=== PATIENT | female | born 1970 ===

== ENCOUNTER 2021-06-21 20:49 | Emergency (ER) | payer OTHER ==
--- OUTSIDE RECORDS SUMMARY | 2021-06-21 20:53 | XMS REPORT | Continuity of Care Document ---
:1970 Author Organization [facility] t Address [address] [place] [address] [address]. [address] [place] [address] Care Team Providers Name Role Phone CAMRYN Attending Clinician Unavailable PRASAD DENNISON Attending Clinician Unavailable Payers Payer Name Policy Type Policy Number Effective Date Expiration Date S [facility] [id number] 2020 PPO 00:00:00 Problems This patient has no known problems. Allergies, Adverse Reactions, Alerts Allergy Allergy Status Severity Reaction(s) Onset Inactive Treating Comm ents Source Name Type Date Date Clinician CODEINE DRUG Active High SOB [facility] INGREDI 7 ity of 00:00: [address] NO KNOWN Drug Active [facility] ALLERGIE Class ity of [facility] Medications This patient has no known medications. Procedures This patient has no known procedures. Encounters Start End Encounter Admission Attending Care Care Encounter Source Date/Time Date/Time Type Type Clinicians Facility Department ID 2021-05-03 2021-05-03 Outpatient CAMRYNFORMERLY [facility] [id number] 00:00:00 00:00:00 COLT [address] 2021-02-07 2021-02-07 Outpatient [facility] [id number] 00:00:00 00:00:00 COLT [address] 2021-01-20 2021-01-20 Outpatient XAVI MCWILLIAMS [facility] [id number] [facility]00 [facility] Results This patient has no known results.
--- NOTE | 2021-06-21 22:01 | RAD REPORT ---
EXAM DESCRIPTION: Sona Single View06/21/2021 9:56 pm CLINICAL HISTORY: Chest pain COMPARISON: 2012 FINDINGS: The lungs appear grossly clear. Heart is normal size
[2021-06-21 22:06] LABS: Urine Blood 3+ (Negative); Urine Glucose Negative (Negative); Urine Protein Negative (Negative); Urine Specific Gravity 1.015 (1.005-1.030); Urine pH 6.5 (5.0-7.0)
[2021-06-21 22:42] LABS: Absolute Lymphocytes (CBC) 1.5 K/uL (0.7-4.9); Basophils % 0.4 % (0-1.3); Hematocrit 37.3 % (36.0-45.0); RBC Red Blood Cell Count 4.01 M/uL (3.86-4.86)
[2021-06-21 22:47] LABS: Protime INR 0.96
[2021-06-21 23:33] LABS: SARS-COV-2 RT PCR NEGATIVE (NEGATIVE)
[2021-06-21 23:39] LABS: ALT/SGPT 47 U/L (12-78); AST/SGOT 49 U/L (15-37); Albumin 3.9 g/dL (3.4-5.0); Alkaline Phosphatase 57 U/L (45-117); BUN Blood Urea Nitrogen 6 mg/dL (7-18); Bicarbonate 24 mmol/L (21-32); Bilirubin Direct 0.1 mg/dL (0-0.2); Bilirubin Total 0.5 mg/dL (0.2-1.0); Glucose Level 108 mg/dL (74-106); Magnesium 2.3 mg/dL (1.8-2.4); NT PRO-BNP 139 pg/mL (<125); Potassium 3.5 mmol/L (3.5-5.1); Protein, Total 7.7 g/dL (6.4-8.2); Sodium Level 140 mmol/L (136-145); Troponin (Emerg Dept Use Only) < 0.02 ng/mL (0.0-0.045)
[2021-06-21 23:41] LABS: Anisocytosis 2+; Blood Morphology Comment NOTED (NOT SEEN); Platelet Estimate ADEQ; White Blood Cell Scan OK (OK)
--- NOTE | 2021-06-22 00:25 | ER ---
Nurse's Notes [facility] Name: Donnell Valladares Age: 50 yrs Sex: Female : 1970 Arrival Date: 06/21/2021 Time: 20:54 Bed 7 Private MD: Diagnosis: Chest pain. Palpitations. Hypothroidism Presentation: 06/21 21:10 Chief complaint: Patient states: Chest pain that radiates to back and left shoulder x4 vg1 days with NVD, denies cough. States began Levothyroxine on June 08, 2021 and a week later states chest pain began with increased heart rate. States stopped taking levothyroxine on 06/17/21. Coronavirus screen: Vaccine status: Patient reports being unvaccinated. Client denies travel out of the [place] in the last 14 days. Ebola Screen: Patient negative for fever greater than or equal to 101.5 degrees Fahrenheit, and additional compatible Ebola Virus Disease symptoms. Initial Sepsis Screen: Does the patient meet any 2 criteria? No. Patient's initial sepsis screen is negative. Does the patient have a suspected source of infection? No. Patient's initial sepsis screen is negative. Risk Assessment: Do you want to hurt yourself or someone else? Patient reports no desire to harm self or others. Onset of symptoms was June 17, 2021. 21:10 Method Of Arrival: Ambulatory vg1 21:10 Acuity: MERLINE 2 vg1 Triage Assessment: 21:13 General: Appears in no apparent distress. comfortable, Behavior is calm, cooperative. vg1 Pain: Complains of pain in anterior aspect of left upper chest and left shoulder and back Pain currently is 0 out of 10 on a pain scale. at worst was 3 out of 10 on a pain scale. Pain began x 4 days. Cardiovascular: Patient's skin is warm and dry. 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 - Social history:: Smoking status: Patient denies any tobacco usage or history of. Screenin:45 Abuse screen: Denies threats or abuse. Nutritional screening: No deficits noted. cc4 Nutritional screening: No deficits noted. Fall Risk None identified. 21:45 Tuberculosis screening: No symptoms or risk factors identified. cc4 Assessment: 21:45 Reassessment: Patient appears in no apparent distress at this time. General: Appears in cc4 no apparent distress. Behavior is calm, cooperative. Pain: Complains of pain in chest left Pain radiates to from lef chest into left scapula Pain currently is 3 out of 10 on a pain scale. Quality of pain is described as aching, Pain began 2-3 days ago. Is continuous. Neuro: Level of Consciousness is awake, alert, obeys commands, Oriented to person, place, time, situation. Cardiovascular: No deficits noted. Reports chest pain, Capillary refill < 3 seconds Rhythm is sinus rhythm. Respiratory: No deficits noted. Airway is patent Respiratory effort is even, unlabored, Respiratory pattern is regular, symmetrical. GI: No signs and/or symptoms were reported involving the gastrointestinal system. : No signs and/or symptoms were reported regarding the genitourinary system. EENT: No signs and/or symptoms were reported regarding the EENT system. Derm: No deficits noted. Skin is intact. Musculoskeletal: No deficits noted. Range of motion: intact in all extremities. 21:45 Reassessment: Swabbed for Covid-19 \\T\\ sent to lab. [facility] 21:48 Reassessment: # 20 g angiocath inserted right AC x 1 attempt with blood drawn \\T\\ sent to [facility] lab, [facility]. [facility]are[facility]. 21:55 Reassessment: PCXR completed per rad techs. [facility] 06/22 00:10 Reassessment: Patient appears in no apparent distress at this time. Reports no change cc in chest discomfort; states, "It's not bad", "It just aches sometimes"; EKG repeated; blood drawn for repeat troponin, andrewJenna well. 00:53 Reassessment: Patient appears in no apparent distress at this time. Carvedilol 6.25 mg cc4 given po for hypertension. voices no complaintss.. Vital Signs: 06/21 21:10 BP 187 / 91; Pulse 98; Resp 16; Temp 99.6; Pulse Ox 100% ; Weight 78.02 kg; Height 5 vg1 ft. 2 in. (157.48 cm); Pain 0/10; 21:24 BP 179 / 95; Pulse 96; Resp 20 S; Temp 99.6(O); Pulse Ox 99% on R/A; cc4 22:00 BP 152 / 79; Pulse 83; Resp 20 S; Pulse Ox 98% on R/A; cc4 23:00 BP 147 / 90; Pulse 84; Resp 18 S; Pulse Ox 97% on R/A; cc4 06/22 00:58 BP 177 / 90; Pulse 85; Resp 20 S; Temp 99.0; Pulse Ox 98% on R/A; cc4 06/21 21:10 Body Mass Index 31.46 (78.02 kg, 157.48 cm) vg1 ED Course: 06/21 20:54 Patient arrived in ED. ja2 21:13 Triage completed. vg1 21:13 Arm band placed on. EKG completed in triage. Results shown to MD. vg1 21:19 Shankar Scott MD is Attending Physician. pkl 21:45 Patient has correct armband on for positive identification. Placed in gown. Bed in low cc4 position. Call light in reach. Side rails up X 1. residential monitor on. Pulse ox on. NIBP on. 21:45 Patient maintains SpO2 saturation greater than 95% on room air. cc4 21:56 XRAY Chest (1 view) In Process Unspecified. EDMS 21:56 Zoey Roberts, RN is Primary Nurse. cc4 21:56 TSH Sent. cc4 21:56 D-Dimer Sent. cc4 21:56 COVID-19/FLU A+B (Document "Date of Onset" if Symptomatic) Sent. cc4 21:57 Basic Metabolic Panel Sent. cc4 21:57 CBC with Diff Sent. cc4 21:57 LFT's Sent. cc4 21:57 Magnesium Sent. cc4 21:57 NT PRO-BNP Sent. cc4 21:57 PT-INR Sent. cc4 21:57 Troponin (emerg Dept Use Only) Sent. cc4 06/22 00:18 Troponin (emerg Dept Use Only) Sent. cc4 Administered Medications: 00:53 Drug: carvedilol 6.25 mg Route: PO; cc4 00:58 Follow up: Response: No adverse reaction cc4 Outcome: 00:25 Discharge ordered by MD. riddle 01:21 Patient left the ED. df1 Signatures: Dispatcher [employer] EDShankar Wiley MD MD pkl Mary Ann Allen RN RN vg1 Valentine Plata Christie, RN RN cc4 Margie Mike df1 Corrections: (The following items were deleted from the chart) 01:29 00:58 BP 177 / 90; Pulse 85bpm; Resp 20bpm; Spontaneous; Pulse Ox 98% RA; Temp 99.0F cc4 Oral; cc4
--- NOTE | 2021-06-22 00:25 | EDPHYS ---
Physician Documentation [facility] Name: Donnell Valladares Age: 50 yrs Sex: Female : 1970 Arrival Date: 06/21/2021 Time: 20:54 Bed 7 Private MD: ED Physician Shankar Scott HPI: 06/21 21:36 This 50 yrs old Unknown Female presents to ER via Ambulatory with complaints of Chest pkl Pain. 21:36 The patient or guardian reports chest pain that is located primarily in the substernal pkl area. Onset: 4 day(s) ago. The pain radiates to the left shoulder, left back. Associated signs and symptoms: Pertinent positives: palpitations. The chest pain is described as dull. 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 - Social history:: Smoking status: Patient denies any tobacco usage or history of. ROS: 21:36 Eyes: Negative for injury, pain, redness, and discharge, ENT: Negative for injury, pkl pain, and discharge, Neck: Negative for injury, pain, and swelling. 21:36 Cardiovascular: Positive for chest pain, palpitations. 21:36 Respiratory: Negative for cough, shortness of breath. 21:36 Abdomen/GI: Positive for nausea, Negative for abdominal pain. 21:36 Back: Negative for acute changes. 21:36 : Negative for urinary symptoms. 21:36 MS/extremity: Negative for acute changes. 21:36 Skin: Negative for rash. 21:36 Neuro: Negative for altered mental status, loss of consciousness. Exam: 21:36 Head/Face: Normocephalic, atraumatic. Eyes: Pupils equal round and reactive to light, pkl extra-ocular motions intact. Lids and lashes normal. Conjunctiva and sclera are non-icteric and not injected. Cornea within normal limits. Periorbital areas with no swelling, redness, or edema. ENT: Nares patent. No nasal discharge, no septal abnormalities noted. Tympanic membranes are normal and external auditory canals are clear. Oropharynx with no redness, swelling, or masses, exudates, or evidence of obstruction, uvula midline. Mucous membranes moist. Neck: Trachea midline, no thyromegaly or masses palpated, and no cervical lymphadenopathy. Supple, full range of motion without nuchal rigidity, or vertebral point tenderness. No Meningismus. Chest/axilla: Normal chest wall appearance and motion. Nontender with no deformity. No lesions are appreciated. Cardiovascular: Regular rate and rhythm with a normal S1 and S2. No gallops, murmurs, or rubs. Normal PMI, no JVD. No pulse deficits. Respiratory: Lungs have equal breath sounds bilaterally, clear to auscultation and percussion. No rales, rhonchi or wheezes noted. No increased work of breathing, no retractions or nasal flaring. Abdomen/GI: Soft, non-tender, with normal bowel sounds. No distension or tympany. No guarding or rebound. No evidence of tenderness throughout. Back: No spinal tenderness. No costovertebral tenderness. Full range of motion. Skin: Warm, dry with normal turgor. Normal color with no rashes, no lesions, and no evidence of cellulitis. MS/ Extremity: Pulses equal, no cyanosis. Neurovascular intact. Full, normal range of motion. Neuro: Awake and alert, GCS 15, oriented to person, place, time, and situation. Cranial nerves II-XII grossly intact. Motor strength 5/5 in all extremities. Sensory grossly intact. Cerebellar exam normal. Normal gait. Vital Signs: 21:10 BP 187 / 91; Pulse 98; Resp 16; Temp 99.6; Pulse Ox 100% ; Weight 78.02 kg; Height 5 vg1 ft. 2 in. (157.48 cm); Pain 0/10; 21:24 BP 179 / 95; Pulse 96; Resp 20 S; Temp 99.6(O); Pulse Ox 99% on R/A; cc4 22:00 BP 152 / 79; Pulse 83; Resp 20 S; Pulse Ox 98% on R/A; cc4 23:00 BP 147 / 90; Pulse 84; Resp 18 S; Pulse Ox 97% on R/A; cc4 12/02 00:58 BP 177 / 90; Pulse 85; Resp 20 S; Temp 99.0; Pulse Ox 98% on R/A; cc4 06/21 21:10 Body Mass Index 31.46 (78.02 kg, 157.48 cm) vg1 MDM: 06/21 21:19 Patient medically screened. pkl 06/22 00:20 Data reviewed: vital signs, nurses notes, lab test result(s), EKG, radiologic studies, pkl plain films. ED course: Patient feeling better. Discussed lab, EKG and imaging with patient. Patient does not want to be admitted for further evaluations. Will follow up with her Pre Coder in 1 to 2 days. To return if necessary. Patient understood instructions. 06/21 21:33 Order name: Basic Metabolic Panel; Complete Time: 23:58 pkl 06/21 21:33 Order name: CBC with Diff; Complete Time: 23:52 pkl 06/21 21:33 Order name: LFT's; Complete Time: 23:58 pkl 06/21 21:33 Order name: Magnesium; Complete Time: 23:58 pkl 06/21 21:33 Order name: NT PRO-BNP; Complete Time: 23:58 pkl 06/21 21:33 Order name: PT-INR; Complete Time: 22:51 pkl 06/21 21:33 Order name: Troponin (emerg Dept Use Only); Complete Time: 23:58 pkl 06/21 21:33 Order name: D-Dimer; Complete Time: 22:51 pkl 06/21 21:34 Order name: TSH; Complete Time: 23:58 pkl 06/21 21:35 Order name: COVID-19/FLU A+B (Document "Date of Onset" if Symptomatic); Complete Time: pkl 23:52 06/21 22:06 Order name: Urine Dipstick-Ancillary; Complete Time: 22:19 EDMS 06/21 22:48 Order name: CBC Smear Scan; Complete Time: 23:52 EDMS 06/21 23:40 Order name: T4 Free; Complete Time: 23:58 EDMS 06/21 23:58 Order name: Troponin (emerg Dept Use Only); Complete Time: 00:50 pkl 06/21 21:33 Order name: XRAY Chest (1 view); Complete Time: 22:19 pkl 06/21 21:33 Order name: EKG; Complete Time: 21:35 pkl 06/21 21:33 Order name: Cardiac monitoring; Complete Time: 21:41 pkl 06/21 21:33 Order name: EKG - Nurse/Tech; Complete Time: 21:41 pkl 06/21 21:33 Order name: IV Saline Lock; Complete Time: 21:56 pkl 06/21 21:33 Order name: Labs collected and sent; Complete Time: 21:57 pkl 06/21 21:33 Order name: O2 Per Protocol; Complete Time: 21:41 pkl 06/21 21:33 Order name: O2 Sat Monitoring; Complete Time: 21:41 pkl 06/21 23:58 Order name: EKG; Complete Time: 23:58 pkl Administered Medications: 00:53 Drug: carvedilol 6.25 mg Route: PO; cc4 00:58 Follow up: Response: No adverse reaction cc4 Disposition Summary: 06/22/21 00:25 Discharge Ordered Location: Home pkl Problem: new pkl Symptoms: have improved pkl Condition: Stable pkl Diagnosis - Chest pain. Palpitations. Hypothroidism pkl Followup: pkl - With: Private Physician - When: 1 - 2 days - Reason: Re-evaluation by your physician Discharge Instructions: - Discharge Summary Sheet pkl Forms: - Medication Reconciliation Form pkl - Thank You Letter pkl - Antibiotic Education pkl - Prescription Opioid Use pkl Prescriptions: - Carvedilol 6.25 mg Oral Tablet - take 1 tablet by ORAL route 2 times per day with food; 60 tablet; Refills: 0, pkl Product Selection Permitted Signatures: Dispatcher [employer] Shankar Vicente MD MD pkl Mary Ann Allen, RN RN vg1 Zoey Roberts RN RN cc4
[2021-06-22] MEDS ORDERED: carvediloL 6.25 MG TAB ONE (00:51)
[2021-06-22 01:30] VITALS: TEMP 99.6
[2021-06-22 01:42] VITALS: BP 152/79; O2SAT 98
== END 2021-06-22 01:21 | disposition home or self-care (01) ==
LOC: ER 20:49
DX: R00.2 Palpitations (principal); E03.9 Hypothyroidism, unspecified; E78.00 Pure hypercholesterolemia, unspecified; Z88.5 Allergy status to narcotic agent; Z20.822 Contact with and (suspected) exposure to COVID-19
CPT/HCPCS: 93005 ×2; 85025; 80048; 36415; 83735; 85610; 85379; 80076; 84443; 81003; 84484 ×2; 84439; 83880; 0240U; 71045; 99285